=== PATIENT | male | born 1965 | race Caucasian/White ===

== ENCOUNTER 2021-05-09 07:30 | Observation (INO) ==
[~2021-05-09 07:30] MED LIST: Buffered Lidocaine 1% SYRIN 1 ml INTRADERM ONE; Famotidine IV 10 MG/ML 2 ml VIAL (20 mg) IV ONE; Lactated Ringers 1000 ml BAG 1,000 ML IV SCH
[2021-05-09] MEDS ORDERED: Clindamycin 900 MG/D5W BAG 900 MG/50 ML BAG IVPB ONE (09:20)
[2021-05-09] MEDS ORDERED: Tranexamic Acid 1 GM/100ML BAG 0 MG/0 ML BAG IV ONE (09:20)
[2021-05-09] MEDS ORDERED: Famotidine IV 10 MG/ML 2 ml VIAL (20 mg) ONE (09:20)
[2021-05-09] MEDS ORDERED: Magnesium Hydroxide LIQ 30 ML UDC PO PRN (10:44)
[2021-05-09] MEDS ORDERED: diPHENhydraMINE IV 50 MG/ML 1 ml VIAL (BENADRYL) IV PRN (10:44)
[2021-05-09] MEDS ORDERED: Ondansetron 4 mg VIAL 2 MG/ML 2 ml VIAL IV PRN ×2 (10:44→12:01)
[2021-05-09] MEDS ORDERED: Lactulose 30 ml UDC PO PRN (10:44)
[2021-05-09] MEDS ORDERED: diPHENhydraMINE 25 mg TAB PO PRN (10:44)
[2021-05-09] MEDS ORDERED: Ondansetron ODT 4 mg TAB 4 MG TAB PO PRN (10:44)
[2021-05-09] MEDS ORDERED: Propofol 10 MG/ML 20 ML BTL ONE ×3 (10:45→13:03)
[2021-05-09] MEDS ORDERED: Midazolam 2 mg/2 ml VIAL 1 mg/ml 2 ml VIAL (2 mg) ONE (10:45)
[2021-05-09] MEDS ORDERED: fentaNYL 100 mcg/2 ml 50 MCG/ML VIAL ONE (11:14)
[2021-05-09] MEDS ORDERED: DiMENhydriNATE IV 50 mg/ml 1 ml VIAL IV PUSH PRN (12:01)
[2021-05-09] MEDS ORDERED: Naloxone 0.4 mg VIAL 0.4 mg/ml 1 ml VIAL IV PRN (12:01)
[2021-05-09] MEDS ORDERED: Phenylephrine 40 mcg/mL 10mL (400mcg) SYRINGE ONE (12:01)
[2021-05-09] MEDS ORDERED: fentaNYL 100 mcg/2 ml 50 MCG/ML VIAL IV PRN (12:01)
[2021-05-09] MEDS: Lactated Ringers 1000 ml BAG 1,000 ML IV SCH (16:44)
[2021-05-09] MEDS: Clindamycin 600 MG/D5W BAG 600 MG/50 ML BAG IV SCH (19:38)
[2021-05-09] MEDS: Gemfibrozil 600 mg PO SCH (21:39)
[2021-05-09] MEDS: Magnesium Hydroxide LIQ 30 ML UDC PO SCH (21:39)
[2021-05-10] MEDS: Clindamycin 600 MG/D5W BAG 600 MG/50 ML BAG IV SCH ×2 (03:41→11:47)
[2021-05-10] MEDS: Lactated Ringers 1000 ml BAG 1,000 ML IV SCH (03:41)
[2021-05-10 06:48] LABS: Hematocrit 35 % (42-52); Hemoglobin 12.1 g/dL (14.0-18.0); Mean Platelet Volume 9.1 fL (7.4-10.4); Platelet Count 192 10^3/uL (150-450)
[2021-05-10 07:04] LABS: Calcium 8.5 mg/dL (8.6-10.3); Potassium 4.3 mmol/L (3.5-5.0); eGFR CKD-EPI 110.5 (>60)
[2021-05-10] MEDS: Magnesium Hydroxide LIQ 30 ML UDC PO SCH (08:36)
[2021-05-10] MEDS: Gemfibrozil 600 mg PO SCH (08:36)
[2021-05-10] MEDS ORDERED: Vitamin THERAPEUTIC TAB PO SCH (09:00)
[2021-05-10 09:10] LABS: Rapid COVID-19 Molecular Undetected (Undetected)
[2021-05-10 11:35] VITALS: BP 122/80
== END 2021-05-10 16:10 ==
LOC: INTOOBSV 10:09 → AA 10:09 → SSU 16:06
PROVIDERS: ADMIT Orthopaedic Surgery Adult Reconstructive Orthopaedic Surgery; ATTEND Orthopaedic Surgery Adult Reconstructive Orthopaedic Surgery